=== PATIENT | female | born 1990 | race Caucasian/White ===

== ENCOUNTER 2016-08-25 14:38 | Emergency (ER) | payer BC ==
[2016-08-25 15:03] VITALS: BP 147/87
--- NOTE | 2016-08-25 15:19 | UC ---
Cardiac HPI - HPI Summary HPI Summary: The patient comes in today for: 1. Chest pain: Onset: "On my radar for the past few weeks, but it has been more recently more frequent and more severe." Palliative/provocative: Nothing makes the pain better worse. Quality: Heaviness most of the time, but there is sharpness also. Region: Retrosternal. There is no radiation to the arms or back. Severity: 06/18 Time: Constant. Associated symptoms: Initially, she would have pain for "a few minutes every other day." Now, for the past two days, the pain has been constant. She describes a heaviness." Dyspnea: None. Nausea: None. Previous heart disease: None. Previous lung disease: None. Inhaler use: None. Injury: None. Cancers: None. * - History of Current Complaint Chief Complaint: UCChestPain Stated Complaint: CHEST PAIN Time Seen by Provider: 08/25/16 14:48 - Allergy/Home Medications Allergies/Adverse Reactions: Allergies Allergy/AdvReac Type Severity Reaction Status Date / Time No Known Allergies Allergy Verified 08/25/16 14:48 Home Medications: Home Medications Control 08/25/16 [History] Fluoxetine HCl [Prozac Weekly] 90 mg PO 08/25/16 [History] PMH/Surg Hx/FS Hx/Imm Hx Previously Healthy: No - Family planning/BCP Endocrine History Of: Denies: Diabetes, Thyroid Disease, Hyperthyroidism, Hypothyroidism, Dyslipidemia Cardiovascular History Of: Denies: Cardiac Disorders, Hypertension, Pacemaker/ICD, Myocardial Infarction , Congestive Heart Failure, Atrial Fibrillation, Deep Vein Thrombosis, Bleeding Disorders Respiratory History Of: Denies: COPD, Asthma, Bronchitis, Pneumonia, Pulmonary Embolism GI/ History Of: Reports: Gastrointestinal Bleed Denies: Gastroesophageal Reflux, Ulcer, Gall Bladder Disease, Kidney Stones, Diverticulitis, Renal Disease, Urosepsis Neurological History Of: Denies: TIA, CVA, Dementia, Seizures, Migraine Psychological History Of: Reports: Anxiety, Depression Denies: Bipolar Disorder, Schizophrenia, Post Traumatic Stress Disorder Cancer History Of: Denies: Lung Cancer, Colorectal Cancer, Breast Cancer, Prostate Cancer, Cervical Cancer Other History Of: Negative For: HIV, Hepatitis B, Hepatitis C, Anticoagulant Therapy - Surgical History Surgical History: None - Family History Known Family History: Positive: Cardiac Disease Negative: Hypertension, Blood Disorder - Social History Occupation: Employed Full-time Alcohol Use: Occasionally Substance Use Type: None Smoking Status (MU): Unknown if Ever Smoked When Did the Patient Quit Smoking/Using Tobacco: Pt states occasional use of tobacco - Immunization History Most Recent Influenza Vaccination: never Review of Systems Constitutional: Negative Skin: Negative Eyes: Negative ENT: Negative Respiratory: Negative Cardiovascular: Chest Pain Gastrointestinal: Negative Genitourinary: Negative All Other Systems Reviewed And Are Negative: Yes Physical Exam Triage Information Reviewed: Yes Appearance: Well-Appearing, No Pain Distress, Well-Nourished Vital Signs: Initial Vital Signs Temp 100 F 08/25/16 14:53 Pulse 90 08/25/16 14:53 Resp 18 08/25/16 14:53 BP 147/87 08/25/16 14:53 Pulse Ox 98 08/25/16 14:53 Vital Signs Reviewed: Yes Eyes: Positive: Conjunctiva Clear ENT: Positive: Hearing grossly normal. Negative: Pharyngeal erythema, Nasal congestion, Nasal drainage, TM bulging, TM dull, TM red, Tonsillar swelling, Tonsillar exudate Dental: Negative: Gross Decay/Caries @, Dental Fracture @ Neck: Positive: Supple, Nontender, No Lymphadenopathy. Negative: Nuchal Rigidity Respiratory: Positive: Lungs clear, No respiratory distress, No accessory muscle use. Negative: Crackles, Wheezing Cardiovascular: Positive: RRR, No Murmur Abdomen Description: Positive: Nontender, No Organomegaly, Soft. Negative: Distended, Guarding Musculoskeletal: Positive: Strength Intact, ROM Intact, No Edema, Other: - Pressing on the sternum did elicit her sharp chest pain--but not her chest heaviness. There was no leg swelling or tenderness to palpation of her calves, popliteal space or upper inner thighs. Neurological: Positive: Muscle Tone Normal, Fatigued Psychological: Positive: Age Appropriate Behavior, Consolable Skin: Negative: rashes, breakdown Diagnostics - Laboratory Diagnostic Studies Completed/Ordered: EKG: Rate: 86. Rhythm: Sinus. Ectopy: None. Acute changes: None. - Assessment/Plan Course Of Treatment: The patient was told that I don't know for sure what is causing her chest heaviness. The patient was also told that there are many causes for chest pain--. some which are benign and some which are life- threatening. Furthermore, it was. mentioned that the life-threatening causes of chest pain can present with. minimal, atypical, or even no symptoms. Becasue of these facts and the fact. that we don't have here all the testing methods commonly used to assess chest. pain, and their timely resuts, my recommendation is for the patient to go to. the [facility] ([facility]) ER. However, she was told that cardiac causes for chest pain would be unusual for her due to her age. But, there are other causes of chest pain such as PE. However, she was told that her Wells score was 0 and this suggests that she most likely does not have a PE as a cause for her chest heaviness. She was told that her sharp chest pain, since it was reproducible, is probably musculoskeletal and should be responsive to NSAIDS. After all this was mentioned, the patient stated that she only came in to make sure that there was not anything obviously abnormal. In the end, she decided to not go to the ER. - Clinical Impression Provider Diagnoses: High blood pressure;. Chest pain (sharpness and a heaviness ) Discharge - Discharge Plan Condition: Stable Disposition: HOME Patient Education Materials: Chest Pain (ED) Referrals: [facility] PHYSICIAN REFERRAL [Outside] Additional Instructions: If you are not going to the ER, please reconsider if you get worse. If the chest pain gets easily and quickly completely better with the Naproxen, then you may follow up with your primary care provider. If you don't have one, please contact the physician referral line.
== END 2016-08-25 16:00 | disposition home or self-care (01) ==
LOC: UCEAST 14:38
DX: I10 Essential (primary) hypertension (principal); F41.9 Anxiety disorder, unspecified; F32.9 Major depressive disorder, single episode, unspecified; R07.9 Chest pain, unspecified
CPT/HCPCS: 93005; 99212; G0463

== ENCOUNTER 2016-08-30 01:59 | Emergency (ER) | payer BC ==
[2016-08-30] MEDS ORDERED: NS 0.9% 1000 ML* 1,000 ML IV ONE (02:40)
[2016-08-30] MEDS ORDERED: Aspirin Low Dose CHEW TAB* 81 MG PO ONE (02:40)
[2016-08-30 02:52] LABS: Hematocrit 37 % (35-47); Hemoglobin 12.8 g/dl (12.0-16.0); Mean Corpuscular HGB Conc 35 g/dl (31-36); Mean Corpuscular Hemoglobin 32 pg (27-31); Mean Corpuscular Volume 93 fL (80-97); Mean Platelet Volume 9 um3 (7.4-10.4); Red Blood Count 3.97 10^6/ul (4.0-5.4); Red Cell Distribution Width 13 % (10.5-15); White Blood Count 6.1 10^3/ul (3.5-10.8)
[2016-08-30 03:08] LABS: ALT 24 U/L (7-52); AST 20 U/L (13-39); Albumin 4.1 g/dL (3.2-5.2); Alkaline Phosphatase 44 U/L (34-104); Anion Gap 4 mmol/L (2-11); BUN/Creatinine Ratio 17.1 (8-20); Blood Urea Nitrogen 13 mg/dL (6-24); CO2 Carbon Dioxide 29 mmol/L (22-32); Chloride 103 mmol/L (101-111); EGFR African American 121.3 (>60); EGFR Non-African American 94.3 (>60); Globulin 2.7 g/dL (2-4); Glucose 99 mg/dL (70-100); Potassium 3.9 mmol/L (3.5-5.0); Sodium 136 mmol/L (133-145); Total Protein 6.8 g/dL (6.4-8.9)
[2016-08-30 03:12] LABS: Troponin I 0.06 ng/mL (<0.04)
[2016-08-30] MEDS ORDERED: Iohexol 350* (CONTRAST) 500 ML MDV IV ONE (04:11)
[2016-08-30 06:33] VITALS: BP 108/59
--- NOTE | 2016-08-30 06:44 | ED ---
Magan Gillespie Adam, scribed for Stalin Bryan MD on 08/30/16 at 0218 . HPI Chest Pain - HPI Summary HPI Summary: Pt is a 25 year old female presenting with intermittent chest pain for the past week. The pain is described as a pressure that is diffuse in her chest. It was mild at first but it has been growing more severe and more constant. She also c/ o palpitations with her heart racing and strange sensations coming in "waves". She also c/o weakness and some numbness in her arms. She also c/o SOB for the past few days. She denies MOON, speech difficulty, back pain, abdominal pain, leg weakness, and pain/swelling in the legs. 2 weeks ago the pt went on a [address] and then a 5 [address] flight to the [facility] and back. She is an occasional smoker. She has been on control for 6 years. FMHx of cardiac disease. - History of Current Complaint Chief Complaint: EDChestPainROMI Hx Obtained From: Patient Onset/Duration: Started Days Ago, Atraumatic, Still Present Timing: Intermittent Initial Severity: Mild Current Severity: Moderate Pain Intensity: 4 Pain Scale Used: 0-10 Numeric Chest Pain Location: Diffuse Chest Pain Radiates: No Character: Pressure/Squeezing Aggravating Factor(s): Nothing Alleviating Factor(s): Nothing Associated Signs and Symptoms: Positive: Numbness - Arms, Weakness - Arms, Shortness of Breath, Palpitations. Negative: Headaches, Swelling, Fever, Back Pain, Abdominal Pain, Calf Pain/Swelling, Edema - Allergy/Home Medications Allergies/Adverse Reactions: Allergies Allergy/AdvReac Type Severity Reaction Status Date / Time No Known Allergies Allergy Verified 08/30/16 02:08 PMH/Surg Hx/FS Hx/Imm Hx Endocrine/Hematology History: Denies: Hx Anticoagulant Therapy, Hx Diabetes, Hx Thyroid Disease Cardiovascular History: Denies: Hx Congestive Heart Failure, Hx Deep Vein Thrombosis, Hx Hypertension , Hx Myocardial Infarction, Hx Pacemaker/ICD Respiratory History: Denies: Hx Asthma, Hx Chronic Obstructive Pulmonary Disease (COPD), Hx Lung Cancer, Hx Pneumonia, Hx Pulmonary Embolism GI History: Reports: Hx Gastrointestinal Bleed Denies: Hx Gall Bladder Disease, Hx Ulcer, Hx Urosepsis History: Denies: Hx Kidney Stones, Hx Renal Disease Neurological History: Denies: Hx Dementia, Hx Migraine, Hx Seizures, Hx Transient Ischemic Attacks (TIA) Psychiatric History: Reports: Hx Anxiety, Hx Depression Denies: Hx Schizophrenia, Hx Bipolar Disorder Infectious Disease History: No Infectious Disease History: Denies: Traveled Outside the [place] in Last 30 Days - Family History Known Family History: Positive: Cardiac Disease Negative: Hypertension, Blood Disorder - Social History Occupation: Employed Full-time Lives: Alone Alcohol Use: Occasionally Hx Substance Use: No Substance Use Type: Reports: None Hx Tobacco Use: Yes Smoking Status (MU): Current Some Day Smoker Review of Systems Negative: Fever Positive: Palpitations, Chest Pain Positive: Shortness Of Breath Negative: Abdominal Pain Negative: Myalgia, Edema Positive: Weakness - Arms, Numbness - Arms. Negative: Headache, Slurred Speech All Other Systems Reviewed And Are Negative: Yes Physical Exam - Summary Physical Exam Summary: The patient is well-nourished in no acute distress and in no acute pain. The skin is mildly diaphoretic. HEENT: The head is normocephalic and atraumatic. The pupils are equal and reactive. The conjunctivae are clear and without drainage. Nares are patent and without drainage. Mouth reveals moist mucous membranes and the throat is without erythema and exudate. The external ears are intact. The ear canals are patent and without drainage. The tympanic membranes are intact. Neck is supple with full range of motion and non-tender. There are no carotid bruits. There is no neck vein distension. Respiratory: Chest is non-tender. Lungs are clear to auscultation and breath sounds are symmetrical and equal. Cardiovascular: Heart is regular rate and rhythm. There is no murmur or rub auscultated. There is no peripheral edema and pulses are symmetrical and equal. Abdomen: The abdomen is soft and non-tender. There are normal bowel sounds heard in all four quadrants and there is no organomegaly palpated. No CVA tenderness. Musculoskeletal: Some reproducible chest wall pain. There is no back pain noted. Extremities are non-tender with full range of motion. There is good capillary refill. There is no peripheral edema or calf tenderness elicited. Neurological: Patient is alert and oriented to person, place and time. The patient has symmetrical motor strength in all four extremities. Cranial nerves are grossly intact. Deep tendon reflexes are symmetrical and equal in all four extremities. Psychiatric: The patient is anxious. Triage Information Reviewed: Yes Vital Signs On Initial Exam: Initial Vitals Temp Pulse Resp BP Pulse Ox 98.9 F 86 19 130/75 100 08/30/16 02:04 08/30/16 02:04 08/30/16 02:04 08/30/16 02:04 08/30/16 02:04 Vital Signs Reviewed: Yes Diagnostics - Vital Signs Vital Signs Temp Pulse Resp BP Pulse Ox 08/30/16 02:04 98.9 F 86 19 130/75 100 - Laboratory Lab Results: Lab Results 08/30/16 08/30/16 08/30/16 Range/Units 02:41 02:41 02:41 WBC 6.1 (3.5-10.8) 10^3/ul RBC 3.97 L (4.0-5.4) 10^6/ul Hgb 12.8 (12.0-16.0) g/dl Hct 37 (35-47) % MCV 93 (80-97) fL MCH 32 H (27-31) pg MCHC 35 (31-36) g/dl RDW 13 (10.5-15) % Plt Count 231 (150-450) 10^3/ul MPV 9 (7.4-10.4) um3 Neut % (Auto) 49.7 (38-83) % Lymph % (Auto) 36.8 (25-47) % [place] % (Auto) 11.7 H (1-9) % Eos % (Auto) 1.5 (0-6) % Baso % (Auto) 0.3 (0-2) % Absolute Neuts (auto) 3.0 (1.5-7.7) 10^3/ul Absolute Lymphs (auto) 2.2 (1.0-4.8) 10^3/ul Absolute Monos (auto) 0.7 (0-0.8) 10^3/ul Absolute Eos (auto) 0.1 (0-0.6) 10^3/ul Absolute Basos (auto) 0 (0-0.2) 10^3/ul Absolute Nucleated RBC 0 10^3/ul Nucleated RBC % 0 Sodium 136 (133-145) mmol/L Potassium 3.9 (3.5-5.0) mmol/L Chloride 103 (101-111) mmol/L Carbon Dioxide 29 (22-32) mmol/L Anion Gap 4 (2-11) mmol/L BUN 13 (6-24) mg/dL Creatinine 0.76 (0.51-0.95) mg/dL Est GFR ( Amer) 121.3 (>60) Est GFR (Non-Af Amer) 94.3 (>60) BUN/Creatinine Ratio 17.1 (8-20) Glucose 99 (70-100) mg/dL Lactic Acid 0.8 (0.5-2.0) mmol/L Calcium 9.0 (8.6-10.3) mg/dL Total Bilirubin 0.30 (0.2-1.0) mg/dL AST 20 (13-39) U/L ALT 24 (7-52) U/L Alkaline Phosphatase 44 (34-104) U/L Troponin I 0.06 H* (<0.04) ng/mL B-Natriuretic Peptide ( - 100) pg/mL Total Protein 6.8 (6.4-8.9) g/dL Albumin 4.1 (3.2-5.2) g/dL Globulin 2.7 (2-4) g/dL Albumin/Globulin Ratio 1.5 (1-3) Beta HCG, Quant < 0.60 mIU/mL 08/30/16 08/30/16 Range/Units 02:41 05:07 WBC (3.5-10.8) 10^3/ul RBC (4.0-5.4) 10^6/ul Hgb (12.0-16.0) g/dl Hct (35-47) % MCV (80-97) fL MCH (27-31) pg MCHC (31-36) g/dl RDW (10.5-15) % Plt Count (150-450) 10^3/ul MPV (7.4-10.4) um3 Neut % (Auto) (38-83) % Lymph % (Auto) (25-47) % [place] % (Auto) (1-9) % Eos % (Auto) (0-6) % Baso % (Auto) (0-2) % Absolute Neuts (auto) (1.5-7.7) 10^3/ul Absolute Lymphs (auto) (1.0-4.8) 10^3/ul Absolute Monos (auto) (0-0.8) 10^3/ul Absolute Eos (auto) (0-0.6) 10^3/ul Absolute Basos (auto) (0-0.2) 10^3/ul Absolute Nucleated RBC 10^3/ul Nucleated RBC % Sodium (133-145) mmol/L Potassium (3.5-5.0) mmol/L Chloride (101-111) mmol/L Carbon Dioxide (22-32) mmol/L Anion Gap (2-11) mmol/L BUN (6-24) mg/dL Creatinine (0.51-0.95) mg/dL Est GFR ( Amer) (>60) Est GFR (Non-Af Amer) (>60) BUN/Creatinine Ratio (8-20) Glucose (70-100) mg/dL Lactic Acid (0.5-2.0) mmol/L Calcium (8.6-10.3) mg/dL Total Bilirubin (0.2-1.0) mg/dL AST (13-39) U/L ALT (7-52) U/L Alkaline Phosphatase (34-104) U/L Troponin I 0.04 H* (<0.04) ng/mL B-Natriuretic Peptide 22 ( - 100) pg/mL Total Protein (6.4-8.9) g/dL Albumin (3.2-5.2) g/dL Globulin (2-4) g/dL Albumin/Globulin Ratio (1-3) Beta HCG, Quant mIU/mL Result Diagrams: 08/30/16 02:41 08/30/16 02:41 Lab Statement: Any lab studies that have been ordered have been reviewed, and results considered in the medical decision making process. - Radiology CXR Xray Interpretation: No Acute Changes - No active disease. Radiology Interpretation Completed By: ED Physician - CT CHEST/THORAX CTA CT Interpretation Completed By: Radiologist - IMPRESSION: NO EVIDENCE OF PATHOLOGY. - EKG 02:19 Cardiac Rate: NL - 74 BPM EKG Rhythm: Sinus Rhythm - Normal ST Segment: Normal - Additional Comments Diagnostic Additional Comments: First Troponin I - 0.06 (@ 02:41). Repeat Troponin I - 0.04 (@ 05:07) Re-Evaluation - Re-Evaluation First Eval Re-Evaluation Time: 06:34 - I reassured the patient that she did not have an DC. I told her that we will give her a referral for a family doctor with whom she should follow up. Chest Pain Course/Dx - Course Course Of Treatment: Patient's first troponin was 0.06 but the second level went down 0.04 at 3 hours. Her CTA was negative for PE. her pain was constant today and there was no increase in pain. today She will be discharged home. - Chest Pain Differential Diagnosis/HQI/PQRI: Acute DC, ACS, Aortic Aneurysm, Chest Wall, GI Disease, Lower Respiratory Infection, Pulmonary Embolism - Diagnoses Provider Diagnoses: Chest pain Discharge - Discharge Plan Condition: Stable Disposition: HOME Patient Education Materials: Chest Pain (ED) Referrals: [facility] PHYSICIAN REFERRAL [Outside] Additional Instructions: Use the [facility] Physician Referral Center to find a Family Doctor and follow up with him/her. The documentation as recorded by the Magan almanza Adam accurately reflects the service I personally performed and the decisions made by me, Stalin Bryan MD.
--- NOTE | 2016-08-30 07:48 | RAD ---
INDICATION: Chest pain. Short of breath COMPARISON: CTA chest August 30, 2016 TECHNIQUE: An AP portable view obtained at 0208 hours is submitted. FINDINGS: Bones/Soft Tissues: There are no acute bony findings. Cardiomediastinal: The cardiomediastinal silhouette is normal. Lungs: There are no infiltrates. Pleura: There are no pleural effusions. Other: None IMPRESSION: NO ACTIVE DISEASE.
--- NOTE | 2016-08-30 08:03 | RAD ---
HISTORY: Chest pain, shortness of breath COMPARISONS: None TECHNIQUE: Multiple contiguous axial CT scans of the chest were obtained after the administration of nonionic intravenous contrast, timed to the pulmonary arterial phase of contrast enhancement.. Coronal and sagittal multiplanar reformations are also submitted for review. FINDINGS: There is suboptimal opacification of the pulmonary arterial system. The attenuation of the main pulmonary artery is less than 200 Hounsfield units. This is considered nondiagnostic for detection of pulmonary emboli. NECK AND THYROID: The lower neck and thyroid are unremarkable. CHEST WALL: There is no lower cervical, axillary, or supraclavicular lymphadenopathy by size criteria. HEART AND PERICARDIUM: The heart is unremarkable. AORTA AND PULMONARY VASCULATURE: There are no obvious proximal or large pulmonary arterial filling defect; however, this is considered nondiagnostic for detection of pulmonary emboli MEDIASTINUM: There is no mediastinal lymphadenopathy by size criteria. JAIME: There is no hilar lymphadenopathy by size criteria. AIRWAY AND ESOPHAGUS: The airway is unremarkable, without endobronchial filling defect. The esophagus is grossly normal. LUNG PARENCHYMA: The lungs are clear. PLEURA: No pleural abnormalities are noted. UPPER ABDOMEN: The upper abdomen is unremarkable. BONES AND SOFT TISSUES: No bone or soft tissue abnormalities are noted. OTHER: None. IMPRESSION: 1. WHILE THERE IS NO OBVIOUS PULMONARY ARTERIAL FILLING DEFECT, THERE IS INSUFFICIENT CONTRAST WITHIN THE PULMONARY ARTERIAL SYSTEM TO BE CONSIDERED DIAGNOSTIC FOR THE DETECTION OF PULMONARY EMBOLI. 2. THE FINDINGS AND THE DISCREPANCY FROM THE PRELIMINARY REPORT WERE DISCUSSED WITH DR. SERRANO AT APPROXIMATELY 7:58 AM AND AUGUST 30, 2016
== END 2016-08-30 06:41 | disposition home or self-care (01) ==
LOC: ED 01:59
DX: R07.9 Chest pain, unspecified (principal); R06.02 Shortness of breath; R00.2 Palpitations; R53.1 Weakness; Z72.0 Tobacco use
CPT/HCPCS: 36415; 71010; 71275; 80053; 83605; 83880; 84484; 84702; 85025; 93005; 99283; A9270-GY; Q9967

== ENCOUNTER 2016-08-30 17:16 | Emergency (ER) | payer BC ==
[2016-08-30] MEDS ORDERED: Iohexol 350* (CONTRAST) 500 ML MDV IV ONE (19:41)
--- NOTE | 2016-08-30 23:31 | ED ---
HPI Chest Pain - HPI Summary HPI Summary: Patient is a 25yo F who was seen the ED last night. She states she has been having chest pain and pressure as a tightness for 4 days without relief. She was at first and was sent to ED. Here, we obtained a CTA and blood work. Troponin 0.06, next draw was 0.04. CTA was negative as of last night, but today she was called to return because of a second radiology reading stating: IMPRESSION: 1. WHILE THERE IS NO OBVIOUS PULMONARY ARTERIAL FILLING DEFECT, THERE IS INSUFFICIENT CONTRAST WITHIN THE PULMONARY ARTERIAL SYSTEM TO BE CONSIDERED DIAGNOSTIC FOR THE DETECTION OF PULMONARY EMBOLI. 2. THE FINDINGS AND THE DISCREPANCY FROM THE PRELIMINARY REPORT WERE DISCUSSED WITH DR. SERRANO AT APPROXIMATELY 7:58 AM AND AUGUST 30, 2016 She returns now with continuing pain in the chest. She denies other symptoms, but she is on BC and smokes. Denies travel. D-dimer today negative. - History of Current Complaint Chief Complaint: EDGeneral Time Seen by Provider: 08/30/16 19:07 Hx Obtained From: Patient Onset/Duration: Started Days Ago Timing: Constant Initial Severity: Moderate Current Severity: Moderate Pain Intensity: 4 Pain Scale Used: 0-10 Numeric Chest Pain Location: Mid Sternal, Upper Sternal, Lower Sternal Chest Pain Radiates: No Character: Burning, Crushing Aggravating Factor(s): Nothing Alleviating Factor(s): Nothing Associated Signs and Symptoms: Positive: Chest Pain - Risk Factors Pulmonary Embolism Risk Factors: Oral Contraceptives, Smoking TAD Risk Factors: Negative - Allergy/Home Medications Allergies/Adverse Reactions: Allergies Allergy/AdvReac Type Severity Reaction Status Date / Time No Known Allergies Allergy Verified 08/30/16 02:08 PMH/Surg Hx/FS Hx/Imm Hx Previously Healthy: Yes Endocrine/Hematology History: Denies: Hx Anticoagulant Therapy, Hx Diabetes, Hx Thyroid Disease Cardiovascular History: Denies: Hx Congestive Heart Failure, Hx Deep Vein Thrombosis, Hx Hypertension , Hx Myocardial Infarction, Hx Pacemaker/ICD Respiratory History: Denies: Hx Asthma, Hx Chronic Obstructive Pulmonary Disease (COPD), Hx Lung Cancer, Hx Pneumonia, Hx Pulmonary Embolism GI History: Reports: Hx Gastrointestinal Bleed Denies: Hx Gall Bladder Disease, Hx Ulcer, Hx Urosepsis History: Denies: Hx Kidney Stones, Hx Renal Disease Neurological History: Denies: Hx Dementia, Hx Migraine, Hx Seizures, Hx Transient Ischemic Attacks (TIA) Psychiatric History: Reports: Hx Anxiety, Hx Depression Denies: Hx Schizophrenia, Hx Bipolar Disorder - Immunization History Hx Pertussis Vaccination: No Immunizations Up to Date: No Infectious Disease History: No Infectious Disease History: Denies: Traveled Outside the [place] in Last 30 Days - Family History Known Family History: Positive: Cardiac Disease Negative: Hypertension, Blood Disorder - Social History Occupation: Employed Full-time Lives: With Family Alcohol Use: Occasionally Hx Substance Use: No Substance Use Type: Reports: None Hx Tobacco Use: Yes Smoking Status (MU): Current Some Day Smoker Do You Chew or Dip Tobacco: No Review of Systems Constitutional: Negative Eyes: Negative Positive: Chest Pain Positive: Shortness Of Breath Gastrointestinal: Negative Genitourinary: Negative Positive: no symptoms reported, see HPI Musculoskeletal: Negative Neurological: Negative Positive: Anxious All Other Systems Reviewed And Are Negative: Yes Physical Exam Triage Information Reviewed: Yes Vital Signs On Initial Exam: Initial Vitals Temp Pulse Resp BP Pulse Ox 98.5 F 69 18 120/69 100 08/30/16 17:22 08/30/16 17:22 08/30/16 17:22 08/30/16 17:22 08/30/16 17:22 Vital Signs Reviewed: Yes Appearance: Positive: Well-Appearing, No Pain Distress, Well-Nourished Skin: Positive: Warm, Skin Color Reflects Adequate Perfusion Head/Face: Positive: Normal Head/Face Inspection Eyes: Positive: EOMI, LETTY, Conjunctiva Clear Neck: Positive: Supple, No Lymphadenopathy Respiratory/Lung Sounds: Positive: Clear to Auscultation, Breath Sounds Present Cardiovascular: Positive: Normal, RRR, Pulses are Symmetrical in both Upper and Lower Extremities Abdomen Description: Positive: Nontender Musculoskeletal: Positive: Normal, Strength/ROM Intact Neurological: Positive: Normal, Sensory/Motor Intact, Alert, Oriented to Person Place, Time, Speech Normal Psychiatric: Positive: Normal AVPU Assessment: Alert Diagnostics - Vital Signs Vital Signs Temp Pulse Resp BP Pulse Ox 08/30/16 17:22 98.5 F 69 18 120/69 100 - Laboratory Lab Results: Lab Results 08/30/16 Range/Units 17:30 D-Dimer, Quantitative < 200 (Less Than 230) ng/mL Lab Statement: Any lab studies that have been ordered have been reviewed, and results considered in the medical decision making process. Chest Pain Course/Dx - Course Course Of Treatment: Patient called to return today d/t possible inaccurate reading of CT. Some of the vessels were unable to be visualized and could not completely rule out a PE. She arrives today for another CTA. D-dimer negative. CTA negative for PE. Patient assured to return if any symptoms become worse. Follow up with PCP. Patient reassured and OK for discharge. - Chest Pain Differential Diagnosis/HQI/PQRI: Chest Wall, Lower Respiratory Infection, Pulmonary Embolism - Diagnoses Provider Diagnoses: Chest pain Discharge - Discharge Plan Condition: Stable Disposition: HOME Prescriptions: LORazepam TAB(*) [Ativan 1 MG TAB (*)] 1 mg PO Q4H PRN #12 tab MDD 6 PRN Reason: Anxiety Patient Education Materials: Chest Pain (ED) Referrals: No Primary Care Phys,NOPCP [Primary Care Provider] - Additional Instructions: Follow up with your PCP. Call this week If symptoms do not improve, come back to ED. Take ativan for anxiety - up to every 4 hours per day as needed.
[2016-08-30] MEDS ORDERED: LORazepam TAB(*) 1 MG PO ONE (23:42)
[2016-08-31 00:24] VITALS: BP 115/74
--- NOTE | 2016-08-31 07:31 | RAD ---
INDICATION: Chest pain. Short of breath. Evaluate for pulmonary embolus. COMPARISON: CTA chest August 30, 2016 TECHNIQUE: Axial source images were obtained from the thoracic inlet to the hemidiaphragms following administration of [address] angiographic technique was utilized. Coronal and sagittal reconstructed images were acquired. CHEST FINDINGS: Neck/thyroid: The visualized neck to include the thyroid appear normal. Chest wall: There are no acute abnormalities of the bony thorax or chest wall. There is no supraclavicular, infraclavicular, or axillary lymphadenopathy. Lungs : There are no pulmonary parenchymal masses or infiltrates. The pulmonary interstitium appears normal. There are no endobronchial lesions. Cardiomediastinal structures: There is no CT evidence of acute pulmonary embolic disease. There is good opacification of the pulmonary arteries. The heart is normal in size. There is no pericardial effusion. There is no evidence of aortic aneurysm or dissection. There is no mediastinal or hilar adenopathy. The esophagus appears normal. Pleura : There are no pleural-based masses or effusions. Other: None. IMPRESSION: NO CT EVIDENCE OF ACUTE PULMONARY EMBOLIC DISEASE. LUNGS CLEAR.
== END 2016-08-31 00:30 | disposition home or self-care (01) ==
LOC: ED 17:16
DX: R07.9 Chest pain, unspecified (principal); Z72.0 Tobacco use; R06.02 Shortness of breath; F41.9 Anxiety disorder, unspecified
CPT/HCPCS: 36415; 71275; 85379; 99282; A9270-GY; Q9967

== ENCOUNTER 2017-01-29 14:19 | Emergency (ER) | payer BC ==
[2017-01-29] MEDS ORDERED: Ketorolac INJ* 60 MG/2 ML VIAL IM ONE (14:50)
[2017-01-29] MEDS ORDERED: HYDROcodone/ACETAMIN 5-325 MG* 1 TAB PO ONE ×2 (15:21→15:53)
--- NOTE | 2017-01-29 15:36 | RAD ---
Indication: Sharp RIGHT hip region pain post fall from horse. Comparison: No relevant prior exams available on the [facility] for comparison. Technique: AP pelvis and AP and frog-leg lateral views RIGHT hip. Report: The RIGHT hip is normally located. No cortical disruption or suspicious trabecular irregularity to suggest fracture at the proximal RIGHT femur or pelvis. Negative for pelvic joint diastases. Unremarkable soft tissue contours. IMPRESSION: No radiographic evidence for RIGHT hip or pelvis fracture or articular malalignment. Negative exam.
[2017-01-29 17:49] VITALS: BP 119/72
--- NOTE | 2017-01-29 23:54 | ED ---
Roseanna Gillespie Emily, scribed for Douglas Farias MD on 01/29/17 at 1530 . Lower Extremity - HPI Summary HPI Summary: This patient is a 26 year old F presenting to [facility] with hip pain s/p fall off of horse this afternoon. Pt is unable to bear weight on right leg. The CC is described as sharp. The patient rates the pain 8/10 in severity. Symptoms aggravated by movement. Symptoms alleviated by nothing. Patient denies neck pain. - History of Current Complaint Chief Complaint: EDHipPelvisInjury Stated Complaint: FALL FROM HORSE Time Seen by Provider: 01/29/17 14:43 Hx Obtained From: Patient Hx Last Menstrual Period: unknown - pt states using control gets period only 3x/year Mechanism Of Injury: Other - Fall from horse Onset of Pain: Immediate Onset/Duration: Hours Severity Initially: Severe Severity Currently: Severe Pain Intensity: 8 Pain Scale Used: 0-10 Numeric Timing: Constant, Lasting Hours Character Of Pain: Sharp Aggravating Factor(s): Movement Alleviating Factor(s): Nothing - Allergies/Home Medications Allergies/Adverse Reactions: Allergies Allergy/AdvReac Type Severity Reaction Status Date / Time No Known Allergies Allergy Verified 08/30/16 02:08 PMH/Surg Hx/FS Hx/Imm Hx Previously Healthy: No Endocrine/Hematology History: Denies: Hx Anticoagulant Therapy, Hx Diabetes, Hx Thyroid Disease Cardiovascular History: Denies: Hx Congestive Heart Failure, Hx Deep Vein Thrombosis, Hx Hypertension , Hx Myocardial Infarction, Hx Pacemaker/ICD Respiratory History: Denies: Hx Asthma, Hx Chronic Obstructive Pulmonary Disease (COPD), Hx Lung Cancer, Hx Pneumonia, Hx Pulmonary Embolism GI History: Reports: Hx Gastrointestinal Bleed Denies: Hx Gall Bladder Disease, Hx Ulcer, Hx Urosepsis History: Denies: Hx Kidney Stones, Hx Renal Disease Neurological History: Denies: Hx Dementia, Hx Migraine, Hx Seizures, Hx Transient Ischemic Attacks (TIA) Psychiatric History: Reports: Hx Anxiety, Hx Depression Denies: Hx Schizophrenia, Hx Bipolar Disorder Infectious Disease History: No Infectious Disease History: Denies: Traveled Outside the [place] in Last 30 Days - Family History Known Family History: Positive: Cardiac Disease Negative: Hypertension, Blood Disorder - Social History Alcohol Use: Daily Alcohol Amount: 1-2 drinks/day Hx Substance Use: No Substance Use Type: Reports: None Hx Tobacco Use: Yes Smoking Status (MU): Never Smoked Tobacco Review of Systems Negative: Fever Positive: Other - Positive hip pain. Negative neck pain All Other Systems Reviewed And Are Negative: Yes Physical Exam Triage Information Reviewed: Yes Vital Signs On Initial Exam: Initial Vitals Temp Pulse Resp BP Pulse Ox 98.0 F 79 17 123/78 100 01/29/17 14:30 01/29/17 14:30 01/29/17 14:30 01/29/17 14:30 01/29/17 14:30 Vital Signs Reviewed: Yes Appearance: Positive: Well-Appearing, No Pain Distress Skin: Positive: Warm, Skin Color Reflects Adequate Perfusion, Dry, Other - Abrasions on bilateral elbows, right worse than left Head/Face: Positive: Normal Head/Face Inspection Eyes: Positive: Normal ENT: Positive: Normal ENT inspection Neck: Positive: Supple, Nontender Respiratory/Lung Sounds: Positive: Clear to Auscultation, Breath Sounds Present Cardiovascular: Positive: RRR Abdomen Description: Positive: Nontender, Soft Bowel Sounds: Positive: Present Musculoskeletal: Positive: Other - Tender to any range of motion of right hip Neurological: Positive: Normal Psychiatric: Positive: Affect/Mood Appropriate - Natasha Coma Scale Coma Scale Total: 15 Diagnostics - Vital Signs Vital Signs Temp Pulse Resp BP Pulse Ox 01/29/17 14:30 98.0 F 79 17 123/78 100 - Laboratory Lab Statement: Any lab studies that have been ordered have been reviewed, and results considered in the medical decision making process. - Radiology Hip/Pelvis XR Radiology Interpretation Completed By: Radiologist - Hip/Pelvis XR read by radiologist reveals no radiographic evidence for RIGHT hip or pelvis fracture or articular malalignment. Negative exam. ED physician has reviewed this radiology report and agrees. Lower Extremity Course/Dx - Course Course Of Treatment: Ms. Danielson fell off a horse and landed on her right hip. She is extremely tender to any active or passive ROM or palpation of the area. X -ray of the pelvis and hip are negative and swhe will be treated symptomatically. - Diagnoses Provider Diagnoses: Contusion of right hip and thigh Discharge - Discharge Plan Condition: Stable Disposition: HOME Prescriptions: oxyCODONE/Acetamin 5/325 MG* [Percocet 5/325 TAB*] 1 tab PO Q6H PRN #20 tab MDD 4 PRN Reason: Pain Patient Education Materials: Hip Contusion (ED) Referrals: [facility] [place] [facility]IAN REFERRAL [Outside] - 1 Week Additional Instructions: TAKE IBUPROFEN NEEDED FOR PAIN. RETURN TO THE EMERGENCY DEPARTMENT FOR CHANGING OR WORSENING SYMPTOMS. The documentation as recorded by the Roseanna almanza Emily accurately reflects the service I personally performed and the decisions made by me, Douglas Farias MD.
== END 2017-01-29 17:48 | disposition home or self-care (01) ==
LOC: ED 14:19
DX: S70.01XA Contusion of right hip, initial encounter (principal); V80.010A Animal-rider injured by fall from or being thrown from horse in noncollision accident, initial encounter; Y93.9 Activity, unspecified; Y92.9 Unspecified place or not applicable
CPT/HCPCS: 96372; 99282

== ENCOUNTER 2017-06-24 14:57 | Emergency (ER) | payer BC ==
[2017-06-24 17:31] VITALS: BP 133/78
--- NOTE | 2017-06-24 18:08 | UC ---
Knee Pain HPI - HPI Summary HPI Summary: 06/07 she got a very aggressive massage she has bruising and pain in her legs--- her knees hurt so bad they will buckle she has a bruise on her right elbow from hitting her arm on a desk when her knees buckled---has been drinking plenty of fluids and has not observed any blood or tea colored urine---no flank or back pain no sob - History of Current Complaint Chief Complaint: UCLowerExtremity Stated Complaint: LEG PAIN/SWELLING Time Seen by Provider: 06/24/17 17:55 Hx Obtained From: Patient Hx Last Menstrual Period: 3 months ago ?: No Onset/Duration: Sudden Onset, Lasting Weeks - 2, Still Present Severity Initially: Moderate Severity Currently: Moderate Pain Intensity: 7 Character: Aching Aggravating Factor(s): Movement, Weight Bearing Alleviating Factor(s): Rest, Position Associated Signs And Symptoms: Positive: Bruising, Weakness Able to Bear Weight: Yes - Allergies/Home Medications Allergies/Adverse Reactions: Allergies Allergy/AdvReac Type Severity Reaction Status Date / Time No Known Allergies Allergy Verified 06/24/17 15:26 Home Medications: Home Medications Norethindrone-Ethinyl Estrad [Alyacen 7-7-7-28 Tablet] 1 tab PO DAILY 06/24/17 [ History Confirmed 06/24/17] PMH/Surg Hx/FS Hx/Imm Hx Previously Healthy: Yes Psychological History: Anxiety Other History Of: Negative For: HIV, Hepatitis B, Hepatitis C, Anticoagulant Therapy - Surgical History Surgical History: None - Family History Known Family History: Positive: Cardiac Disease Negative: Hypertension, Blood Disorder - Social History Occupation: Student Lives: Dormitory/Roommates Alcohol Use: Daily Alcohol Amount: 1-2 drinks/day Substance Use Type: None Smoking Status (MU): Never Smoked Tobacco When Did the Patient Quit Smoking/Using Tobacco: Pt states occasional use of tobacco - Immunization History Most Recent Influenza Vaccination: never Review of Systems Constitutional: Negative Skin: Negative Eyes: Negative ENT: Negative Respiratory: Negative Cardiovascular: Negative Gastrointestinal: Negative Genitourinary: Negative Motor: Negative Neurovascular: Negative Musculoskeletal: Arthralgia - knees, Edema - shins of legs, Myalgia - soft tissue in legs Neurological: Negative Psychological: Negative Is Patient Immunocompromised?: No All Other Systems Reviewed And Are Negative: Yes Physical Exam Triage Information Reviewed: Yes Appearance: Well-Appearing, Well-Nourished, Pain Distress - mild Vital Signs: Initial Vital Signs Temp 98.9 F 06/24/17 15:21 Pulse 80 06/24/17 15:21 Resp 18 06/24/17 15:21 BP 138/88 06/24/17 15:21 Pulse Ox 99 06/24/17 15:21 Vital Signs Reviewed: Yes Eye Exam: Normal Eyes: Positive: Conjunctiva Clear ENT Exam: Normal ENT: Positive: Normal ENT inspection, Hearing grossly normal, Pharynx normal. Negative: Nasal congestion, TMs normal, Tonsillar swelling, Tonsillar exudate, Trismus, Muffled voice, Hoarse voice, Dental tenderness, Sinus tenderness Dental Exam: Normal Neck exam: Normal Neck: Positive: Supple, Nontender, No Lymphadenopathy Respiratory Exam: Normal Respiratory: Positive: Chest non-tender, Lungs clear, Normal breath sounds, No respiratory distress, No accessory muscle use Cardiovascular Exam: Normal Cardiovascular: Positive: RRR, No Murmur, Pulses Normal, Brisk Capillary Refill Abdominal Exam: Normal Abdomen Description: Positive: Nontender, No Organomegaly, Soft. Negative: CVA Tenderness (R), CVA Tenderness (L) Musculoskeletal Exam: Normal Musculoskeletal: Positive: ROM Intact, Strength Limited @ - both knees, Edema @ - antior lower legs Neurological Exam: Normal Neurological: Positive: Alert, Muscle Tone Normal Psychological Exam: Normal Skin Exam: Normal Diagnostics - Laboratory Diagnostic Studies Completed/Ordered: ua +1 blood sg 1.01 Knee Pain Course/Dx - Course Course Of Treatment: lab stuides to check CPK, K, Plateletes. BUN. Creat--- patient encouraged to drinking po fluids, otc antiinflammatories and tylenol for break through pain follow with pcp - Differential Dx/Diagnosis Provider Diagnoses: multiple contusion Discharge - Discharge Plan Condition: Stable Disposition: HOME Prescriptions: Naproxen Sodium [Naproxen Sodium 500 MG TAB] 500 mg PO BID #30 tab Patient Education Materials: Contusion in Adults (ED), Musculoskeletal Pain (ED ) Referrals: [facility] REFERRAL [Outside] - If Needed
[2017-06-25 14:30] LABS: ABS Basophils 0 10^3/ul (0-0.2); ABS Eosinophils 0 10^3/ul (0-0.6); ABS Monocytes 0.3 10^3/ul (0-0.8); ABS Neutrophils 4.6 10^3/ul (1.5-7.7); ABS Nucleated RBC 0 10^3/ul; Eosinophil % 0.2 % (0-6); Hematocrit 42 % (35-47); Hemoglobin 14.5 g/dl (12.0-16.0); Lymphocyte % 28.7 % (25-47); Mean Corpuscular HGB Conc 35 g/dl (31-36); Mean Corpuscular Hemoglobin 33 pg (27-31); Mean Corpuscular Volume 94 fL (80-97); Mean Platelet Volume 9 um3 (7.4-10.4); Nucleated Red Blood Cells % 0.1; Platelet Count 360 10^3/ul (150-450); Red Blood Count 4.46 10^6/ul (4.0-5.4); Red Cell Distribution Width 13 % (10.5-15)
[2017-06-25 14:37] LABS: EGFR Non-African American 93.5 (>60)
== END 2017-06-24 19:05 | disposition home or self-care (01) ==
LOC: UCEAST 14:57
DX: T14.8XXA Other injury of unspecified body region, initial encounter (principal); X58.XXXA Exposure to other specified factors, initial encounter; Y92.9 Unspecified place or not applicable; Z32.02 Encounter for pregnancy test, result negative; Z72.0 Tobacco use
CPT/HCPCS: 36415; 80053; 81003; 82550; 84702; 85025; 99211; G0463